=== PATIENT | male | born 1985 | race Caucasian/White ===

== ENCOUNTER 2016-10-25 01:03 | Emergency (ER) | payer SELFPAY ==
[2016-10-25] MEDS ORDERED: IBUPROFEN 600 MG TABLET PO ONE (02:50)
--- NOTE | 2016-10-25 02:53 | ER Document Report ---
ED General - General Chief Complaint: Arm Injury Stated Complaint: FALL/ARM INJURY Time Seen by Provider: 10/25/16 02:32 Notes: Patient is a 31-year-old male who presents with complaint of pain in his right forearm and elbow. Patient says he fell onto his right forearm. He has pain now mainly in the proximal forearm that radiates into the elbow itself. He denies any wrist or hand pain. No other complaints at this time. TRAVEL OUTSIDE OF THE [place] IN LAST 30 DAYS: No - Related Data Allergies/Adverse Reactions: No Known Allergies Allergy (Verified 01/06/15 16:37) Past Medical History - Social History Smoking Status: Unknown if Ever Smoked Frequency of alcohol use: None Drug Abuse: None Family History: Reviewed & Not Pertinent Patient has suicidal ideation: No Patient has homicidal ideation: No Renal/ Medical History: Denies: Hx Peritoneal Dialysis - Immunizations Hx Diphtheria, Pertussis, Tetanus Vaccination: Yes Review of Systems - Review of Systems Notes: My Normal Review Basic REVIEW OF SYSTEMS: CONSTITUTIONAL : Denies fever, chills, or sweats. Denies recent illness. MUSCULOSKELETAL: Right forearm pain SKIN: Denies rash or skin lesions. NEUROLOGICAL: Denies altered mental status or loss of consciousness. Denies headache. Denies weakness or paralysis or loss of use of either side. Denies problems with gait or speech. Denies sensory or motor loss. ALL OTHER SYSTEMS REVIEWED AND NEGATIVE. Physical Exam - Vital signs Vitals: Temp Pulse Resp BP Pulse Ox 97.6 F 98 16 129/89 H 100 10/25/16 01:20 10/25/16 01:20 10/25/16 01:20 10/25/16 01:20 10/25/16 01:20 - Notes Notes: General Appearance: Well nourished, alert, cooperative, no acute distress, mild to moderate obvious discomfort. Vitals: reviewed, See vital signs table. Extremities: strength 5/5 in all extremities, good pulses in all extremities, patient has no obvious deformity to his elbow or forearm. She is able to flex and extend the elbow. He has some pain with flexion but he is able to do it. Patient is able to supinate and pronate forearm. Patient has some pain to palpation over the proximal forearm and some pain palpation over the olecranon of the elbow. Skin: warm, dry, appropriate color, no rash Neuro: speech clear, oriented x 3, normal affect, responds appropriately to questions. Course - Re-evaluation Re-evalutation: 10/25/16 05:41 Patient's x-rays negative for fracture. He does have some swelling a small knot over the proximal forearm which appears to be a small hematoma over the forearm. I encouraged him to use cold compresses over this area. I did give him a sling. I encouraged him to follow-up with his doctor or orthopedist in 1 week if his continue have pain or swelling in the area. Patient agrees with plan and will be discharged home. Dictation of this chart was performed using voice recognition software; therefore, there may be some unintended grammatical errors. - Vital Signs Vital signs: Temp Pulse Resp BP Pulse Ox 97.8 F 75 15 134/76 H 98 10/25/16 04:07 10/25/16 04:07 10/25/16 04:07 10/25/16 04:07 10/25/16 04:07 Discharge - Discharge Clinical Impression: Contusion of arm, right Qualifiers: Encounter type: initial encounter Qualified Code(s): S40.021A - Contusion of right upper arm, initial encounter Condition: Good Disposition: HOME, SELF-CARE Instructions: Oral Narcotic Medication ([facility]) Additional Instructions: Please return to the ER immediately if you develop worsening pain or increasing swelling. PLease follow up with your doctor or the orthopedist in 1 week for reevaluation and potential repeat xray if you still are having significant pain. PLease use ice packs over the swollen area on your forearm as this swollen area most likely represents a hematoma. Forms: Return to Work Referrals: MATTY WINN MD [ACTIVE STAFF] - Follow up in 1 week
--- NOTE | 2016-10-25 03:52 | RADIOLOGY REPORT (SQ) ---
EXAM DESCRIPTION: FOREARM RIGHT COMPLETED DATE/TIME: 10/25/2016 3:02 am REASON FOR STUDY: fall COMPARISON: None. NUMBER OF VIEWS: Two views. TECHNIQUE: Two radiographic images acquired of the right forearm, including elbow and wrist in at le ast one projection. LIMITATIONS: None. FINDINGS: MINERALIZATION: Normal. BONES: No acute fracture. No worrisome bone lesions. Minimal distal triceps enthesophyte. SOFT TISSUES: No obvious swelling or foreign body. OTHER: No other significant finding. IMPRESSION: NEGATIVE STUDY OF THE RIGHT FOREARM. NO RADIOGRAPHIC EVIDENCE OF ACUTE INJURY. TECHNICAL DOCUMENTATION: JOB ID: [id number] [employer] All Rights Reserved
[2016-10-25] MEDS ORDERED: HYDROCODONE/ACETAMINOPHEN 5-325 MG 6 TAB/DSPK PO PRN (03:54)
[2016-10-25] MEDS ORDERED: HYDROCODONE/ACETAMINOPHEN 5-325 MG TABLET PO ONE (03:54)
[2016-10-25 04:08] VITALS: BP 134/76
== END 2016-10-25 04:08 | disposition home or self-care (01) ==
LOC: ER 01:03
DX: S40.021A Contusion of right upper arm, initial encounter (principal); W19.XXXA Unspecified fall, initial encounter
CPT/HCPCS: 99283